=== PATIENT | female | born 1950 | race Caucasian/White ===

== ENCOUNTER 2017-01-06 13:16 | Inpatient (IN) | payer OTHER ==
[2017-01-06] VITALS (8 sets, daily range): BP systolic 140–158; BP diastolic 80–99; PULSE 62–72; RESP 15–22; TEMP 98; Ht 167.6 cm; Wt 70.0 kg
[~2017-01-06] VITALS: Ht 167.6 cm; Wt 70.0 kg
--- NOTE | 2017-01-06 14:23 | ERA ---
ER Documentation Chief Complaint Date/Time DATE: 01/06/17 TIME: 14:23 Chief Complaint CP that radiates to B arm pain and back. HPI The patient is a 66-year-old female, presenting to the ER because of substernal chest pain radiating out to bilateral arms for the last 4 days, 12/27. She denies similar symptoms previously, denies chest pain with exertion or vomiting or diaphoresis. She denies fever, chills, neck pain, abdominal pain, vomiting, dysuria, diarrhea, constipation. He does not smoke or drink Past medical/surgical history: None ROS All systems reviewed and are negative except as per history of present illness. Medications Home Meds No Active Prescriptions or Reported Meds Allergies Allergies: Coded Allergies: No Known Allergy (Unverified , 01/06/17) Physical Exam Vitals Vital Signs Date Time Temp Pulse Resp B/P Pulse Ox O2 Delivery O2 Flow Rate FiO2 01/06/17 17:53 98.0 72 20 151/93 99 01/06/17 16:53 98.0 68 20 132/88 99 01/06/17 15:53 98.0 70 20 138/74 99 01/06/17 13:34 98.0 75 20 129/75 99 Physical Exam Const: No acute distress. Head: Atraumatic. Eyes: Normal Conjunctiva. ENT: Normal External Ears, Nose and Mouth. Neck: Full range of motion. No meningismus. Resp: Clear to auscultation bilaterally. Cardio: Regular rate and rhythm, no murmurs. Abd: Soft, non distended, normal bowel sounds, non tender. Skin: No petechiae or rashes. Back: No midline or flank tenderness. Ext: No cyanosis, or edema. Neur: Awake and alert. No focal deficit Psych: Normal Mood and Affect. Result Diagram: 01/06/17 1430 01/06/17 1430 Results 24 hrs Laboratory Tests Test 01/06/17 14:30 Activated Partial Thromboplast Time 25.0Sec Anion Gap 14 Basophils # 0.010^3/ul Basophils % 0.5% Blood Urea Nitrogen 17mg/dl Calcium Level 8.9mg/dl Carbon Dioxide Level 32mmol/L Chloride Level 101mmol/L Creatinine 0.88mg/dl Eosinophils # 0.110^3/ul Eosinophils % 0.7% Free Thyroxine 1.57ng/dl Glucose Level 93mg/dl Hematocrit 37.9% Hemoglobin 11.9g/dl Hemoglobin A1c 5.9% INR International Normalized Ratio 0.98 Lymphocytes # 2.910^3/ul Lymphocytes % 33.0% Mean Corpuscular Hemoglobin 29.0pg Mean Corpuscular Hemoglobin Concent 31.4g/dl Mean Corpuscular Volume 92.4fl Mean Platelet Volume 10.2fl Monocytes # 0.810^3/ul Monocytes % 8.6% Neutrophils # 5.010^3/ul Neutrophils % 57.0% Nucleated Red Blood Cells # 0.010^3/ul Nucleated Red Blood Cells % 0.0/100WBC Platelet Count 90958^3/UL Potassium Level 3.8mmol/L Prothrombin Time 13.0Sec Prothrombin Time Ratio 1.0 Red Blood Count 4.1010^6/ul Red Cell Distribution Width 13.8% Sodium Level 143mmol/L Troponin I 17.400ng/ml Vitamin D 1,25-Dihydroxy 19.6ng/ml White Blood Count 8.810^3/ul Current Medications Medications (Trade) Dose Ordered Sig/Arianna Route PRN Reason Start Time Stop Time Status Last Admin Dose Admin Aspirin (Aspirin) 325 mg ONCE ONCE PO 01/06/17 15:30 01/06/17 15:31 DC 01/06/17 15:27 Nitroglycerin 1 inch 1 inch ONCE ONCE TD 01/06/17 15:30 01/06/17 15:31 DC 01/06/17 15:27 Nitroglycerin/ Dextrose (Nitroglycerin 50 Mg/D5W (Pmx)) 250 ml @ 0 mls/hr TITRATE IV 01/06/17 15:30 Miscellaneous Information (* Miscellaneous Pharmacy Order) DC previous hepa... ONCE ONCE XX 01/06/17 16:00 01/06/17 16:01 DC Heparin Sodium (Porcine) (Heparin (1000 Units/ml)) 4,000 unit ONCE ONCE IV 01/06/17 16:00 01/06/17 16:01 DC 01/06/17 15:59 Miscellaneous Information (* Miscellaneous Pharmacy Order) DC previous hepa... ONCE ONCE XX 01/06/17 16:00 01/06/17 16:01 DC Heparin Sodium (Porcine) (Heparin (1000 Units/ml)) 4,000 unit ONCE ONCE IV 01/06/17 16:00 01/06/17 16:01 DC Heparin Sodium (Porcine) 4000 unit 4,000 unit PER PROTOCOL PRN IV aPTT<47 01/06/17 16:00 Heparin Sodium (Porcine) (Heparin 68953 Units/250 ml) 250 ml @ 8.4 mls/hr PER PROTOCOL IV 01/06/17 16:00 01/06/17 16:14 Heparin Sodium (Porcine) ONCE IV 01/06/17 16:00 01/06/17 16:00 DC Heparin Sodium (Porcine) (Heparin 88086 Units/250 ml) 250 ml @ 0 mls/hr Q24H IV 01/06/17 16:00 01/06/17 16:00 DC Heparin Sodium (Porcine) PRN PRN IV PENDING LAB VALUE 01/06/17 16:00 01/06/17 16:00 DC Potassium Chloride/Dextrose/ Sod Cl (D5-1/2ns + KCl 20 Meq) 1,000 ml @ 60 mls/hr [id number] IV 01/06/17 17:43 IV Flush (NS 3 ml) 3 ml PER PROTOCOL IV 01/06/17 18:00 01/06/17 18:24 DC IV Flush (NS 3 ml) 3 ml PER PROTOCOL IV 01/06/17 18:00 Lorazepam (Ativan) 0.5 mg Q6H PRN IV ANXIETY 01/06/17 18:00 Ondansetron HCl (Zofran Inj) 4 mg Q6H PRN IV NAUSEA AND/OR VOMITING 01/06/17 18:00 Nitroglycerin (Nitroglycerin (Sl Tab) 0.4 Mg) 1 tab Q5M PRN SL CHEST PAIN 01/06/17 18:00 Acetaminophen (Tylenol Tab) 650 mg Q6H PRN PO PAIN LEVEL 1-3 OR FEVER 01/06/17 18:00 Acetaminophen/ Hydrocodone Bitart ([place] (5/325)) 1 tab Q6H PRN PO PAIN LEVEL 4-6 01/06/17 18:00 Morphine Sulfate (morphine) 2 mg Q4H PRN IV PAIN LEVEL 7-10 01/06/17 18:00 Pantoprazole (Protonix Tab) 40 mg DAILY@06 PO 01/07/17 06:00 Hydralazine HCl (Apresoline) 10 mg Q6H PRN IV SBP>160 01/06/17 18:00 Procedures/MDM [place] [address] Radiology Main Line: [phone] DIAGNOSTIC IMAGING REPORT Patient: LACHO CAREY : 1950 Age: 66 Sex: F MR #: [id number] DOS: 01/06/17 1426 Ordering MD: SOURAV MERRITT MD Location: E/R Room/Bed: PROCEDURE: XR Chest. CLINICAL INDICATION: chest pain TECHNIQUE: Single frontal view of the chest was obtained COMPARISON: None FINDINGS: The heart and mediastinum are within normal limits. There are linear bibasilar atelectatic changes, left greater than right. The lungs are once clear. There is no pleural effusion or pneumothorax. RPTAT: AA IMPRESSION: Linear bibasilar atelectatic changes, left greater than right. .Stanley Guerrero MD, MD Date Time Electronically viewed and signed by .Stanley Guerrero MD, MD on 01/06/2017 14: 54 .S/ CC: SOURAV MERRITT MD EKG: Read by emergency physician at 1:39 PM Rate/Rhythm: Normal Sinus Rhythm at 77 beats/min QRS, ST, T-waves: No ST elevation, no T inversion, LAD, low voltage, inferior and anterior Q waves Impression: Abnormal EKG EKG: Read by emergency physician at 2:50 PM Rate/Rhythm: Normal Sinus Rhythm at 70 beats/min QRS, ST, T-waves: No ST elevation, no T inversion, LAD, low voltage, inferior and anterior Q waves Impression: Abnormal EKG MEDICAL MAKING DECISION: The patient is a 66-year-old female, presenting with acute non-STEMI with persistent chest pain. She was treated with aspirin 325 mg p.o., 1 inch of nitroglycerin ointment, heparin drip cardiac protocol, nitroglycerin drip with good response. The differential diagnoses considered include but are not limited to acute coronary syndrome, acute myocardial infarction, pericarditis, pulmonary embolism, aortic dissection, pneumonia, pleural effusion, pneumothorax, GERD, chest wall pain. Consultation: I discussed the patient with the on-call wire hanger Dr. Corbin at 3:25 PM, who was made aware of the lab, the treatment, the patient condition. He agreed with the plan and recommended ICU admission Critical Care: Time: 35 minutes excluding all billable procedures. Treatments/Evaluations: Close monitoring and treatment of unstable vital signs, cardiorespiratory, and neurologic status, while maintaining tight balance of fluid, respiratory, and cardiac interventions. Departure Diagnosis: Primary Impression: Acute non-ST segment elevation myocardial infarction (STEMI) following previous myocardial infarction Additional Impression: Anemia Condition: Critical Comments I discussed the findings with the patient. I discussed the patient with the on- call hospitalist Dr. Xavier who was made aware of the lab, the treatment, the patient condition and my discussion with the wire hanger. The patient is admitted to ICU at 4:50 PM The patient's blood pressure was elevated (>120/80) but appears stable without evidence of hypertension emergency or urgency. The patient was counseled about the risks of hypertension and urged to pursue outpatient monitoring and therapy within a week after discharge with their primary care physician. SOURAV MERRITT MD Jan 06, 2017 14:23
[2017-01-06 14:45] LABS: ADD SCAN DIFF NO
[2017-01-06 14:49] LABS: BASOPHILS % 0.5 % (0.0-2.0); EOSINOPHILS # 0.1 10^3/ul (0.0-0.5); EOSINOPHILS % 0.7 % (0.0-7.0); HEMATOCRIT 37.9 % (37.0-47.0); HEMOGLOBIN 11.9 g/dl (12.0-16.0); LYMPHOCYTES # 2.9 10^3/ul (0.8-2.9); MEAN CORPUSCULAR HGB CONC 31.4 g/dl (32.0-37.0); MEAN CORPUSCULAR VOLUME 92.4 fl (82.0-101.0); MEAN PLATELET VOLUME 10.2 fl (7.4-10.4); MONOCYTE # 0.8 10^3/ul (0.3-0.9); MONOCYTES % 8.6 % (0.0-11.0); PLATELET COUNT 270 10^3/UL (140-415); RED CELL DISTRIBUTION WIDTH 13.8 % (11.5-14.5); WHITE BLOOD COUNT 8.8 10^3/ul (4.8-10.8)
--- NOTE | 2017-01-06 14:55 | RADRPT ---
PROCEDURE: XR Chest. CLINICAL INDICATION: chest pain TECHNIQUE: Single frontal view of the chest was obtained COMPARISON: None FINDINGS: The heart and mediastinum are within normal limits. There are linear bibasilar atelectatic changes, left greater than right. The lungs are once clear. There is no pleural effusion or pneumothorax. RPTAT: AA IMPRESSION: Linear bibasilar atelectatic changes, left greater than right. .Stanley Guerrero MD, MD Date Time Electronically viewed and signed by .Stanley Guerrero MD, MD on 01/06/2017 14:54 .S/
[2017-01-06 15:00] LABS: INR 0.98
[2017-01-06 15:01] LABS: POTASSIUM 3.8 mmol/L (3.5-5.1)
[2017-01-06 15:03] LABS: CREATININE 0.88 mg/dl (0.44-1.00)
[2017-01-06 15:04] LABS: CALCIUM 8.9 mg/dl (8.4-10.2)
[2017-01-06 15:20] LABS: TROPONIN-I 17.4 ng/ml (0.00-0.12)
[2017-01-06] MEDS ORDERED: NITROGLYCERIN 2% 1 GM OINT PKT TD ONE (15:30)
[2017-01-06] MEDS ORDERED: NITROGLYCERIN 50 MG/D5W (PMX) 250 ML IV SCH (15:30)
[2017-01-06] MEDS ORDERED: ASPIRIN 325 MG TAB PO ONE (15:30)
[2017-01-06] MEDS ORDERED: HEPARIN 1000 UNITS/ML 10 ML INJ IV SCH (16:00)
[2017-01-06] MEDS ORDERED: HEPARIN 25000 UNITS/D5W 250 ML IV SCH (16:00)
[2017-01-06] MEDS ORDERED: HEPARIN 1000 UNITS/ML 10 ML INJ IV PRN ×2 (16:00)
[2017-01-06] MEDS ORDERED: HEPARIN 25000 UNITS/250 ML 250 ML IV SCH (16:00)
[2017-01-06] MEDS ORDERED: HEPARIN 1000 UNITS/ML 10 ML INJ IV ONE ×2 (16:00)
[2017-01-06] MEDS ORDERED: D5W-0.45 NACL + KCL 20 MEQ 1,000 ML IV SCH (17:43)
[2017-01-06] MEDS ORDERED: ONDANSETRON 4 MG INJ IV PRN (18:00)
[2017-01-06] MEDS ORDERED: morphine 2 MG INJ IV PRN ×2 (18:00→21:00)
[2017-01-06] MEDS ORDERED: NACL 0.9% 3 ML SYG IV SCH ×2 (18:00)
[2017-01-06] MEDS ORDERED: HYDROCODONE/APAP (5/325) TAB PO PRN (18:00)
[2017-01-06] MEDS ORDERED: LORAZEPAM 2 MG INJ IV PRN (18:00)
[2017-01-06] MEDS ORDERED: hydrALAzine 20 MG INJ IV PRN (18:00)
[2017-01-06] MEDS ORDERED: ACETAMINOPHEN 325 MG TAB PO PRN ×2 (18:00→21:00)
[2017-01-06] MEDS ORDERED: NITROGLYCERIN (SL) 0.4 MG TAB SL PRN (18:00)
--- NOTE | 2017-01-06 18:03 | RADRPT ---
Echocardiogram Report Patient Name: LACHO CAREY Gender: Female Date: 1950 Study Date: 06-Jan-2017 Clinical Nurse Reviewer: Hermelinda Rosario RDCS Location: [facility] Ref. Physician: SOURAV MERRITT Quality: Adequate Procedures: Transthoracic echocardiogram with complete 2D, M-Mode, and doppler examination. Indications: NSTEMI. 2D/M Mode Doppler Measurement Value Normal Ranges Measurement Value Normal Ranges LVIDd 2D 4.5 3.5 - 5.6 cm AV Peak Merritt 1.0 m/sec LVIDs 2D 2.9 2.1 - 4.1 cm AV Peak PG 4.0 mmHg FS 2D 34.7 % AI Peak PG 37.0 mmHg LVPWd 2D 0.9 0.6 - 1.1 cm AI Peak Merritt 3.0 m/sec IVSd 2D 1.0 0.6 - 1.1 cm AI PHT 514.0 msec IVS/LVPW 2D 1.2 LVOT Peak Merritt 0.7 m/sec AoR Diam 2D 2.2 2.0 - 3.7 cm LVOT Peak PG 2.0 mmHg LA/Ao 2D 1 0 - 1 MV E Peak Merritt 0.4 m/sec LA Dimen 2D 3.2 2.3 - 4.0 cm MV A Peak Merritt 0.6 m/sec MV E/A 0.7 MV Decel Time 211 msec MV E/A 0.7 TR Peak Merritt 1.9 m/sec TR Peak PG 14.0 mmHg RVSP 17.0 mmHg Findings Left Ventricle: Normal left ventricular cavity size. Normal left ventricular wall thickness. Ejection fraction is visually estimated at 30 - 35 %. Tissue Doppler/Mitral Doppler indices are consistent with impaired relaxation (Stage I diastolic dysfunction). Multiple segmental wall motion abnormalities. Right Ventricle: Normal right ventricular size. Normal right ventricular systolic function. Left Atrium: The left atrium is normal in size. Right Atrium: The right atrium is normal in size. Mitral Valve: Normal appearance and function of the mitral valve with trace physiologic regurgitation. Aortic Valve: No hemodynamically significant aortic stenosis by doppler. Aortic cusps appear mildly calcified. Trace to mild aortic valve regurgitation. Tricuspid Valve: Normal appearance of the tricuspid valve. Estimated peak PA systolic pressure 17 mmHg. There is trace tricuspid regurgitation. Pulmonic Valve: Normal pulmonic valve appearance. Pericardium: Normal pericardium with no significant pericardial effusion. Aorta: Normal aortic root. IVC: Normal size and normal respiratory collapse consistent with normal right atrial pressure. Conclusions 1.Normal left ventricular cavity size. Normal left ventricular wall thickness. Ejection fraction is visually estimated at 30 - 35 %. Tissue Doppler/Mitral Doppler indices are consistent with impaired relaxation (Stage I diastolic dysfunction). Multiple segmental wall motion abnormalities. 2.The left atrium is normal in size. 3.Normal appearance and function of the mitral valve with trace physiologic regurgitation. 4.No hemodynamically significant aortic stenosis by doppler. Aortic cusps appear mildly calcified. Trace to mild aortic valve regurgitation. 5.Normal appearance of the tricuspid valve. Estimated peak PA systolic pressure 17 mmHg. There is trace tricuspid regurgitation. Electronically Signed By: Mohan Corbin 06-Jan-2017 18:02:14 -0700 Patient Name: LACHO CAREY Study Date: 06-Jan-2017 [id number]
[2017-01-06] MEDS ORDERED: BIVALIRUDIN 250MG /NS 50 ML 50 ML IVPB ONE (19:21)
[2017-01-06] MEDS ORDERED: IODIXANOL LOCM 100 ML BTL ONE (19:21)
[2017-01-06] MEDS ORDERED: HEPARIN 1000 UNITS/ML 10 ML INJ ONE (19:21)
[2017-01-06] MEDS ORDERED: LIDOCAINE 1% (MDV) 20 ML INJ ONE (19:21)
[2017-01-06] MEDS ORDERED: MIDAZOLAM 1 MG/ML 2 ML INJ ONE (19:45)
[2017-01-06] MEDS ORDERED: FENTAnyl 50 MCG/ML VIAL ONE (19:45)
[2017-01-06] MEDS ORDERED: NITROGLYCERIN (IC) 100 MCG/ML INJ ONE (19:47)
[2017-01-06] MEDS ORDERED: VERAPAMIL 5 MG INJ ONE (19:47)
--- NOTE | 2017-01-06 20:01 | HP ---
DATE OF ADMISSION: 01/06/2017 TIME OF EVALUATION: 1730. REASON FOR ADMISSION: Chest pain. CONSULTANTS: Mohan Corbin M.D., Cardiology. HISTORY OF PRESENT ILLNESS: This is a 66-year-old female who denies any significant past medical history, who came to the emergency room with chief complaint of chest pain as well as bilateral upper extremity pain and numbness. The patient verbalized that she started having this pain since 01/02/2017. The patient however verbalized that the pain has been going on and off. The pain was described as substernal with radiation to bilateral upper extremities. The patient denied any associated nausea or diaphoresis. The patient was reporting anorexia over the past 4 days. When asked about why the patient was late to seek medical attention, the patient verbalized that she does not like to go to a hospital. The patient denied any family history of heart disease. The patient denied any prior history of essential hypertension or diabetes. However, the patient verbalized that approximately 3 years ago, she was told that she has high blood pressure. Nevertheless, she was not taking any medication for this. The patient denied any fevers or chills. She was complaining of some dyspnea. The patient denied any abdominal pain, diarrhea, hematochezia or dysuria. The patient denied any calf pain or tenderness. The patient lives at home with her friends. The patient's family is in [facility]. In the emergency room, the patient was noticed to have initial troponin of 17.400. The patient's chest x-ray was showing linear bibasilar atelectatic changes, left greater than right. The patient's vital signs were stable in the emergency room. The patient was started on a heparin drip in the emergency room. The patient was also given a single dose of aspirin in the emergency room. PAST MEDICAL HISTORY: Denies. PAST SURGICAL HISTORY: Tubal ligation. HOME MEDICATIONS: None. ALLERGIES: NO KNOWN DRUG ALLERGIES. 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 The patient is from [facility]. The patient said her family is in [facility]. Denies any use of tobacco, alcohol or illicit drugs. REVIEW OF SYSTEMS: A 12-point review of systems were reviewed and the review of systems are negative other than what is mentioned in the history of present illness. PHYSICAL EXAMINATION: VITAL SIGNS: Temperature 98.0, pulse rate 68, respiratory rate 20, blood pressure 132/88, oxygen saturation 99% on room air. GENERAL: This is a slightly overweight female patient lying in bed in no apparent distress. HEENT: Head normocephalic and atraumatic. Eyes: Anicteric sclerae. Conjunctivae clear. ENT: Nasal septum is midline. Oral mucosa is dry. NECK: Supple. No JVD noticed. RESPIRATORY: Bilaterally clear to auscultation. No adventitious breath sounds heard. No use of accessory muscles of respiration. CARDIAC: Regular rate and rhythm. No obvious murmurs heard. ABDOMEN: Abdomen soft, nontender and nondistended. Bowel sounds positive in all 4 quadrants. GENITOURINARY: Deferred. EXTREMITIES: No cyanosis, no clubbing, no edema. Peripheral pulses are palpable. NEUROLOGIC: The patient is awake, alert and oriented. Cranial nerves II through XII grossly intact. SKIN: Normal skin turgor. No skin rashes. LABORATORY AND DIAGNOSTIC DATA: WBC 8.8, hemoglobin 11.9, hematocrit 37.9, platelet count of 70. Sodium 143, potassium 3.8, chloride 101, carbon dioxide 32, anion gap 14, BUN 17, creatinine 0.88, glucose 93, calcium 8.9. Troponin 17.400, PT 13.0, INR 0.98. Chest x-ray: Linear bibasilar atelectatic changes, left greater than right. IMPRESSION: This is a 66-year-old female who denies any significant past medical history, who came to the emergency room with chief complaint of chest pain and bilateral upper extremity pain, who was found to have elevated troponins and will be admitted here for further treatment and evaluation. ASSESSMENT AND PLAN: 1. Plc-YA-giiciqxxd myocardial infarction. The patient will be started on a heparin drip. The patient will be kept n.p.o. except for any medications. Cardiology consult will be obtained. A 2-D echocardiogram will be obtained to evaluate the left ventricular ejection fraction to evaluate for any wall motion abnormalities. The patient will be started on aspirin. 2. Chest pain and bilateral upper extremity pain, most probably secondary to # 1. The patient will be provided with adequate pain control. Plan. The patient will be admitted to inpatient intensive care unit. The patient will be kept n.p.o. except for medications. The patient will be maintained on heparin drip. The patient will be started on gastrointestinal prophylaxis. The patient will remain a FULL CODE. Baseline labs including hemoglobin A1c, fasting lipid panel, and a thyroid panel will be obtained. The rest of the patient's management will be based on the clinical course, the results of diagnostic studies, and inputs from consultants. Based on the patient's clinical presentation, she most probably requires at least 2 midnights' stay for further management and evaluation of her clinical presentation. The case and management of this patient was fully discussed with Dr. Ramos. JORGE RAMOS MD, AM/KATY Conf#: [id number] DID#: [id number] MTDD
[2017-01-06] MEDS ORDERED: TICAGRELOR 90 MG TABLET ONE (20:07)
--- NOTE | 2017-01-06 20:20 | CONS ---
DATE OF ADMISSION: 01/06/2017 DATE OF CONSULTATION: 01/06/2017 REFERRING PHYSICIAN: Rich Jones, OIL BAY TECHNICIAN, and Dr. Hemant Merritt. REASON FOR CONSULTATION: Chest pain, abnormal troponin. CHIEF COMPLAINT: Chest pain. HISTORY OF PRESENT ILLNESS: Thank you for this referral. History obtained from the patient, mary ruiz with Dr. Merritt, ER physician. A 66-year-old female with history of dyslipidemia on no medication, who presented ____ above complaint. The patient says since the past 5 days she has had chest pain. It started 5 days ago. It was severe the first 2 days, got better over the weekend; ho wever, yesterday she had recurrence of chest pain and came to the emergency room. Initial troponin has been 17. She was started on heparin. The pain has gone away, has improved now, but the patient is resting on heparin drip. PAST MEDICAL HISTORY: History of dyslipidemia. MEDICATIONS AT HOME: None. SOCIAL HISTORY: Does not smoke or drink. FAMILY HISTORY: Denies any history of coronary artery disease. ALLERGIES: NO REPORTED ALLERGIES. REVIEW OF SYSTEMS: As above mentioned. She says she "does not like to take medication." PHYSICAL EXAMINATION: VITAL SIGNS: Temperature 98, heart rate of 72, blood pressure 151/93, respiration rate of 20, satur ating 99%. HEENT: Normocephalic, atraumatic. Obese female. Pupils are equal. CARDIOVASCULAR: Regular rate and rhythm. Systolic murmur. PULMONARY: With no wheezes, no rhonchi. GASTROINTESTINAL: Soft, obese, nontender. EXTREMITIES: Trivial lower extremity edema. NEUROLOGIC: Awake and alert, oriented x3. PSYCHIATRIC: Calm, pleasant. DIAGNOSTIC DATA: Chest x-ray showed linear basilar atelectatic changes, left greater than right. E KG was personally reviewed, showed normal sinus rhythm, inferior infarct, age undetermined, anterose ptal infarct, age undetermined. There are Q-waves, both sides, noted. Echocardiogram was personall y reviewed, shows severe LV dysfunction with multiple wall motion abnormalities ejection fraction ab out 30% to 35%. LABORATORY DATA: WBC of 8.8, hemoglobin 11.9, platelets of 270. Sodium 143, potassium 3.8, BUN of 17, creatinine 0.88, glucose of 93. Troponin of 17.4. Hemoglobin A1c of 5.9. ASSESSMENT AND PLAN: 1. Acute non-ST elevation myocardial infarction. 2. Severe ischemic cardiomyopathy, ejection fraction of 30% to 35%. 3. Hypertension. 4. Dyslipidemia. 5. Abnormal EKG secondary to above. RECOMMENDATIONS: The patient has been given aspirin. The patient was started on heparin drip. Giv en her extensive LV dysfunction and abnormal troponin, she was recommended to undergo left heart cat heterization, left coronary angiography, possible percutaneous coronary intervention. Risks and alt ernatives of the procedure discussed with the patient in detail. Risks include infection, vascular complication, bleeding complication, VA, stroke, arrhythmia, , renal failure, etc., discussed w ith the patient. The patient has consented to procedure. Also, importance of compliance with medic ation has been explained to the patient. The patient stated she would be able to be compliant and w ill take the medication. I have called the pie bakery laborer in and we will proceed with a cardiac catheteri zation once the patient is brought to pie bakery laborer and arrives here. For now, we will continue with the heparin drip. Dictated By: YEVGENIY MORE MD AV/NTS Conf#: [id number] DID#: [id number] CC: HEMANT MERRITT MD; RICH JONES O[employer]AY TECHNICIAN;*[facility]*
[2017-01-06] MEDS ORDERED: SOD CHLORIDE 0.9% 1,000 ML IV SCH (20:36)
--- NOTE | 2017-01-06 20:53 | SP ---
DATE OF PROCEDURE: 01/06/2017 PROCEDURE PERFORMED: 1. Urgent left heart catheterization, selective right and left coronary angiography. 2. Successful PTCA and stenting of the right coronary artery from 99% stenosis and no significant r esidual stenosis using a 3.5 x 24 mm Promus drug-eluting stent. 3. Thrombectomy, right coronary artery. 4. Right femoral angiogram. 5. Closure of right femoral artery using a Perclose device. SURGEON: Yevgeniy Corbin MD INDICATIONS: A 66-year-old female who presented with non-ST elevation myocardial infarction. FINDINGS: 1. Left main coronary artery is normal. 2. Left anterior descending is a small vessel, has about 30% to 40% proximal and mid stenosis. 3. Left circumflex artery appeared to be normal. 4. Right coronary is a large, dominant vessel. Proximally to mid level has about 99% long lesion. Distally about 50% lesion. After successful PTCA and stenting of the proximal lesion, no significa nt residual stenosis left. Mid distal level was left alone, since this does not appear to be hemody namically significant. 5. LV systolic pressure was 143 with LVEDP of 11. Aortic pressure with pullback is 139/81. Ejecti on fraction was 45% with anterior wall hypokinesis. DESCRIPTION OF PROCEDURE IN DETAIL: Written informed consent after the risks and benefits were disc ussed with the patient in detail. The patient was brought to the laborer golf course and placed in supine posi tion. Right and left groins were prepped in sterile fashion. Right coronary was anesthetized with 1% lidocaine. Using Seldinger technique, a 6-Pakistani sheath in the right femoral artery. A JL4 cath eter engaged the left main coronary artery. Angiogram was obtained. ____ catheter was advanced int o the left main, hemodynamics recorded. Pullback aortic pressure was measured. ____ right coronary artery and angiogram was obtained. At this time, we decided to perform the PCI of the right benson ry artery. JR4 catheter was advanced and engaged in the right coronary artery. BMW wire used acros s the lesion. Pronto was used and thrombectomy was done. Angiogram was obtained. Then, the 2.5 x ____ mm balloon was used to cross the lesion, inflated. Angiogram was obtained. Then, I used a 3.5 x 24 mm Resolute drug-eluting stent, which was placed across the lesion in the proximal to mid RCA and deployed at 12 atmospheres. Angiogram was obtained, which showed ANKIT 3 flow, no evidence of di ssection, no significant residual stenosis outside of the stent. After the stent, there was area of less than 50% lesion was noted. It appeared to be not hemodynamically significant and treated medi leobardo. Catheter and Glidewire were removed. Pigtail was advanced in the left main, hemodynamics re corded. LV gram performed. Pullback aortic pressure was measured. Right femoral angiogram had alr ariadna been obtained. Perclose was successfully deployed. IMMEDIATE COMPLICATIONS: None. TOTAL CONTRAST USED: 200 mL of Visipaque. CONCLUSION: Successful percutaneous transluminal coronary angioplasty and stent, thrombectomy of th e right coronary artery from 100% occlusion to no significant residual stenosis. RECOMMENDATIONS: Aggressive medical therapy. ICU care overnight. Aspirin indefinitely. Brilinta for a minimum of the next 1 year. Dictated By: YEVGENIY SALAS/KATY Conf#: [id number] DID#: [id number]
[2017-01-06] MEDS ORDERED: BIVALIRUDIN 250 MG in SOD CHLORIDE 0.9% 500 ML IV SCH (21:00)
[2017-01-06] MEDS ORDERED: OXYCODONE/ACETAMINOPHEN (5/325) TAB PO PRN (21:00)
[2017-01-06] MEDS: ATORVASTATIN 80 MG TAB PO SCH (22:09)
[2017-01-06] MEDS: TICAGRELOR 90 MG TABLET PO SCH (22:11)
[2017-01-07] VITALS (21 sets, daily range): BP systolic 88–140; BP diastolic 45–83; PULSE 56–78; RESP 13–24
[2017-01-07 05:51] LABS: ADD SCAN DIFF NO
[2017-01-07] MEDS: PANTOPRAZOLE (EC) 40 MG TAB PO SCH (06:04)
[2017-01-07 06:18] LABS: BASOPHILS % 0.3 % (0.0-2.0); EOSINOPHILS % 0.5 % (0.0-7.0); HEMATOCRIT 34.5 % (37.0-47.0); HEMOGLOBIN 11.2 g/dl (12.0-16.0); LYMPHOCYTES # 1.4 10^3/ul (0.8-2.9); LYMPHOCYTES % 15.9 % (15.0-51.0); MEAN CORPUSCULAR HEMOGLOBIN 29.2 pg (29.0-33.0); MEAN CORPUSCULAR HGB CONC 32.5 g/dl (32.0-37.0); MEAN CORPUSCULAR VOLUME 90.1 fl (82.0-101.0); MEAN PLATELET VOLUME 10.1 fl (7.4-10.4); MONOCYTE # 0.8 10^3/ul (0.3-0.9); MONOCYTES % 9.1 % (0.0-11.0); NEUTROPHIL # 6.4 10^3/ul (1.6-7.5); PLATELET COUNT 263 10^3/UL (140-415); RED BLOOD COUNT 3.83 10^6/ul (4.20-5.40); RED CELL DISTRIBUTION WIDTH 13.5 % (11.5-14.5); WHITE BLOOD COUNT 8.6 10^3/ul (4.8-10.8)
[2017-01-07 06:21] LABS: POTASSIUM 4.1 mmol/L (3.5-5.1)
[2017-01-07 06:24] LABS: CALCIUM 8.7 mg/dl (8.4-10.2); CREATININE 0.76 mg/dl (0.44-1.00)
[2017-01-07 06:25] LABS: CHOL/HDL RATIO 5.3 RATIO
[2017-01-07 06:31] LABS: CK-MB 3.7 ng/ml (0.0-2.4)
[2017-01-07] MEDS: ASPIRIN (EC) 81 MG TAB PO SCH (08:47)
[2017-01-07] MEDS: TICAGRELOR 90 MG TABLET PO SCH ×2 (08:50→21:03)
--- NOTE | 2017-01-07 13:05 | PN ---
DATE: 01/07/2017 TIME OF EVALUATION: 0900 AM. SUBJECTIVE DATA: Denies any chest pain. Denies any other complaints. OBJECTIVE DATA: VITAL SIGNS: Temperature 98.6, pulse rate 56, respiratory rate 16, blood pressure 102/68, oxygen saturation 100% on room air. GENERAL: This is an female lying in bed in no apparent distress. HEENT: Head normocephalic and atraumatic. Eyes: Anicteric sclerae. Conjunctivae clear. ENT: Nasal septum is midline. Oral mucosa is moist. NECK: Supple. No JVD noticed. RESPIRATORY: Bilaterally clear to auscultation. No adventitious breath sounds heard. No use of accessory muscles of respiration. CARDIAC: Regular rate and rhythm. A grade II/ systolic ejection murmur. ABDOMEN: Soft, nontender and nondistended. Bowel sounds positive in all 4 quadrants. GENITOURINARY: Deferred. EXTREMITIES: No cyanosis, no clubbing, no edema. Peripheral pulses palpable. NEUROLOGIC: The patient is awake, alert and oriented. Cranial nerves are grossly intact. LABORATORY AND DIAGNOSTIC DATA: WBC 8.6, hemoglobin 11.2, hematocrit 34.5, platelet count 263. Sodium 140, potassium 4.1, chloride 103, carbon dioxide 20 , anion gap 14, BUN 14, creatinine 0.76, glucose 112, calcium 8.7. Troponin I 14.0. Triglycerides 96, total cholesterol 161, LDL 112, HDL 30. ASSESSMENT AND PLAN: 1. Non-ST elevation myocardial infarction. Status post left heart catheterization with placement of a Promus drug-eluting stent to right coronary artery. Continue dual antiplatelet therapy. 2. Ischemic cardiomyopathy with ejection fraction of 30% to 35%. Continue beta blockers. May need BERKLEY inhibitors if the blood pressure allows. 3. Dyslipidemia. Continue statins. 4. Essential hypertension. Continue antihypertensives. 5. Vitamin D deficiency. Continue vitamin D supplements. 6. Fluid, electrolytes and nutrition. Low cholesterol diet. 7. DVT prophylaxis with bilateral sequential compression devices. 8. Gastrointestinal prophylaxis. Proton pump inhibitors PLAN: Continue dual antiplatelet therapy. Optimize cardiac medications as per cardiology. May move the patient out of the intensive care unit if cleared by cardiology. Case discussed with Dr. Walker. Critical care time: 35 minutes. JORGE WALKER MD, AM/KATY Conf#: [id number] DID#: [id number] MTDD
[2017-01-07] MEDS: CHOLECALCIFEROL 1,000 UNIT TAB PO SCH (18:05)
[2017-01-07] MEDS: ATORVASTATIN 80 MG TAB PO SCH (21:02)
[2017-01-08] VITALS (9 sets, daily range): BP systolic 92–121; BP diastolic 50–67; PULSE 57–73; RESP 18
[2017-01-08] MEDS: PANTOPRAZOLE (EC) 40 MG TAB PO SCH (05:37)
--- NOTE | 2017-01-08 07:32 | PN ---
DATE: 01/07/2017 CARDIOLOGY FOLLOWUP SUBJECTIVE: Discussed with the patient's son, discussed with Rich Jones, discussed with the staf f. The patient remains in sinus rhythm. No chest pain or pressure. Groin with no bleeding. MEDICATIONS: Reviewed. PHYSICAL EXAMINATION: VITAL SIGNS: Temperature 98.6, heart rate of 65, blood pressure of 98/76, respiratory rate of 17. HEENT: Normocephalic, atraumatic. Pupils are equal. CARDIOVASCULAR: Regular rate and rhythm, systolic murmur. PULMONARY: With no wheezes heard. GASTROINTESTINAL: Soft, nontender. EXTREMITIES: With no significant edema in the lower extremities. NEUROLOGIC: Awake and alert. PSYCHIATRIC: Calm, pleasant. VASCULAR: Right with no bleeding, no hematoma. Small ecchymosis noted. PSYCHIATRIC: Appears to be calm and pleasant. LABORATORY: WBC of 8.6, hemoglobin 11.2, platelets 263. Sodium 140, potassium 4.1. Troponin is do wn to 14, LDL 112. ASSESSMENT AND PLAN: 1. [id number] myocardial infarction, status post percutaneous coronary intervention of right coronary artery. 2. Dyslipidemia. 3. Hypertension. RECOMMENDATIONS: The patient will be continued on aspirin and Brilinta. I have given the prescript ion to the son of those 2 medications to fill the prescription. I also provided him with a coupon f or a free . However, they still have not obtained the medication. Coreg will be decreased to 3.125 to avoid hypotension. Lipitor will be continued. We will transfer the patient to telemetry a nd discharge planning possibly for tomorrow. Dictated By: YEVGENIY MORE MD AV/KATY Conf#: [id number] DID#: [id number] CC: RICH JONES OFF PREMISE SERVICE REPRESENTATIVE;*EndCC*
[2017-01-08 08:04] LABS: ADD SCAN DIFF NO
[2017-01-08 08:12] LABS: BASOPHILS % 0.4 % (0.0-2.0); EOSINOPHILS # 0.1 10^3/ul (0.0-0.5); EOSINOPHILS % 0.7 % (0.0-7.0); HEMATOCRIT 34.4 % (37.0-47.0); HEMOGLOBIN 11.3 g/dl (12.0-16.0); LYMPHOCYTES # 1.8 10^3/ul (0.8-2.9); LYMPHOCYTES % 21.3 % (15.0-51.0); MEAN CORPUSCULAR HEMOGLOBIN 29.5 pg (29.0-33.0); MEAN CORPUSCULAR HGB CONC 32.8 g/dl (32.0-37.0); MEAN CORPUSCULAR VOLUME 89.8 fl (82.0-101.0); MEAN PLATELET VOLUME 10.2 fl (7.4-10.4); MONOCYTE # 0.8 10^3/ul (0.3-0.9); NEUTROPHIL # 5.7 10^3/ul (1.6-7.5); NEUTROPHILS % 68.2 % (39.0-77.0); PLATELET COUNT 287 10^3/UL (140-415); RED BLOOD COUNT 3.83 10^6/ul (4.20-5.40); RED CELL DISTRIBUTION WIDTH 13.3 % (11.5-14.5); WHITE BLOOD COUNT 8.4 10^3/ul (4.8-10.8)
--- NOTE | 2017-01-08 08:20 | RADRPT ---
Vent Rate: 67 bpm RR Interval: 0 msec NH Interval: 158 msec QRS Duration: 84 msec QT Interval: 372 msec QTC Interval: 393 msec P-R-T [place]: 44 - -43 - 104 degrees Normal sinus rhythm Left axis deviation Inferior infarct , possibly acute Anterior infarct , age undetermined ACUTE OR Consider right ventricular involvement in acute inferior infarct Abnormal ECG Electronically Signed By: Usama Crum [id number]
[2017-01-08 08:29] LABS: POTASSIUM 4.1 mmol/L (3.5-5.1)
[2017-01-08 08:31] LABS: MAGNESIUM 2.1 mg/dl (1.7-2.5); PHOSPHORUS 4.2 mg/dl (2.5-4.9)
[2017-01-08 08:32] LABS: CREATININE 0.89 mg/dl (0.44-1.00)
[2017-01-08 08:33] LABS: CALCIUM 8.7 mg/dl (8.4-10.2)
[2017-01-08] MEDS: ASPIRIN (EC) 81 MG TAB PO SCH (09:14)
[2017-01-08] MEDS: CHOLECALCIFEROL 1,000 UNIT TAB PO SCH (09:14)
--- NOTE | 2017-01-08 09:32 | PN ---
DATE: 01/08/2017 CARDIOLOGY FOLLOWUP SUBJECTIVE: Patient with no chest pain or pressure. No palpitation. No groin pain. MEDICATIONS: Reviewed. PHYSICAL EXAMINATION: VITAL SIGNS: Temperature 98.2, heart rate of 67, blood pressure 90/50, respiration rate of 18, satu rating 95%. HEENT: Normocephalic, atraumatic. Pupils equal and round. CARDIOVASCULAR: Regular rate and rhythm, systolic murmur. PULMONARY: With no wheezes or rhonchi. GASTROINTESTINAL: Soft, nontender. EXTREMITIES: No significant edema. NEUROLOGIC: Awake and alert x3. PSYCHIATRIC: Calm, pleasant. LABORATORY: WBC of 8.4, hemoglobin 11.3, platelets 287. Sodium 142, potassium 4.1, BUN of 13, crea tinine 0.89, glucose of 94. Mag is 2.1. ASSESSMENT AND PLAN: 1. [id number] myocardial infarction. 2. Status post percutaneous coronary intervention of the right coronary artery. 3. Dyslipidemia. 4. Hypertension. RECOMMENDATIONS: Current cardiac care including Carvedilol, aspirin, Brilinta and statin will be c ontinued. Discharge planning for today. Patient tells me that her son was able to fruit picker the pres cription for aspirin and Brilinta, although, they do not have it at the bedside for me to confirm th at. The patient advised that she needs to follow with me within the next 1 or 2 weeks. Dictated By: YEVGENIY MORE MD AV/KATY Conf#: [id number] DID#: [id number] CC: JORGE BOWERS BEADWORKER;*End*
[2017-01-08] MEDS: TICAGRELOR 90 MG TABLET PO SCH (09:37)
--- NOTE | 2017-01-08 10:45 | PDOCDIS ---
Discharge Instructions DIAGNOSIS Discharge Diagnosis: CAD CONDITION Patient Condition: Stable HOME CARE INSTRUCTIONS: Diet Instructions: Low Fat /CholesterolSpecial Diet: CARDIAC FOLLOW UP/APPOINTMENTS Appointments Mohan Corbin MD Specialty: Cardiology Office Address: [id number] [address] Office OTHER ORDERS: Other Orders: 1. Low-cholesterol diet. 2. Take medications as per prescription. Take aspirin for life long. Continue taking Brilinta for at least one year. 3. Resume activities as tolerated. 4. Follow-up with your switchboard wirer (Dr. Corbin) in 1-2 weeks. Please call for appointment. 5. Please call 911 or go to the nearest emergency room if you have any chest pain or significant shortness of breath. JORGE BOWERS NP Jan 08, 2017 10:45
[2017-01-08] MEDS ORDERED: ATOR80TA75 PO (10:52)
[2017-01-08] MEDS ORDERED: TICA90TA PO (10:52)
[2017-01-08] MEDS ORDERED: ASPI-664 PO (10:52)
[2017-01-08] MEDS ORDERED: CARV3.1260 PO (10:52)
[2017-01-08] MEDS ORDERED: CHOL100062 PO (10:52)
--- NOTE | 2017-01-08 11:43 | DS ---
DATE OF ADMISSION: 01/06/2017 DATE OF DISCHARGE: 01/08/2017 FINAL DIAGNOSES: 1. Non-ST elevation myocardial infarction. Status post left heart catheterization with placement of a Promus drug-eluting stent to the right coronary artery. 2. Ischemic cardiomyopathy with ejection fraction of 30% to 35%. 3. Dyslipidemia. 4. Essential hypertension. 5. Vitamin D deficiency. CONSULTANTS: Mohan Corbin MD, cardiology. HOSPITAL COURSE: This is a 66-year-old female who denies any significant past medical history and came to the emergency room with chief complaint of chest pain as well as bilateral upper extremity pain and numbness. The patient verbalized that she has been having pain since 01/02/2017. However, she waited until 01/06/2017 to seek medical attention. The patient denied any associated nausea or diaphoresis. The patient reported anorexia over a 4 day period. In the emergency room, the patient was noticed to have initial troponin level of 17.400. The patient's chest x-ray was showing linear bibasilar atelectatic changes. Provided the patient's history of present illness and the diagnostic findings, a clinical decision was made to admit the patient to inpatient setting to have her further evaluated. The patient was started on a heparin drip in the emergency room and the patient was transferred to the intensive care unit. Cardiology consult was obtained. The patient was emergently taken to the laboratory associate. The patient underwent a left heart catheterization with successful PTCA and stenting of the right coronary artery from 99% stenosis to no significant residual stenosis using a Promus drug -eluting stent. The patient also underwent a thrombectomy of the right coronary artery. Postprocedure, the patient was transferred back to the intensive care unit. The patient was started on dual-antiplatelet therapy. The patient's fasting lipid panel showed suboptimal LDL and suboptimal HDL. The patient was started on high-dose statins. The patient's 2D echocardiogram showed ejection fraction of 30% to 35% and stage I diastolic dysfunction. The patient was concluded to have ischemic cardiomyopathy. Hence, the patient was started on beta blockers. The patient's blood pressure was slightly borderline low. Hence, it was unable to start the patient on any BERKLEY inhibitors. The patient's hemoglobin A1c was 5.9. The patient's vitamin D level was found to be low. The patient was started on vitamin D supplements. The patient had a stable postprocedure course. The patient was cleared by cardiology to be discharged home. The patient denied any chest pain or any other complaints at the time of discharge. DISCHARGE DISPOSITION/PLAN: The patient will be discharged home today. The patient was instructed to take a low-cholesterol diet. She was instructed to take medications as per prescription and to take aspirin lifelong. The patient was instructed to continue taking Brilinta for at least 1 year. The patient was instructed to resume activities as tolerated. She was instructed to follow up with her straight knife cutter machine in 1 to 2 weeks and to please call for an appointment. The patient was instructed to call 911 or go to the nearest emergency room if she has any chest pain or significant shortness of breath. The patient verbalized understanding of her discharge instructions. CONDITION AT DISCHARGE: Stable. DISCHARGE MEDICATIONS: 1. Aspirin 81 mg p.o. daily. 2. Brilinta 90 mg p.o. b.i.d. 3. Atorvastatin 80 mg p.o. at bedtime. 4. Coreg 3.125 mg p.o. b.i.d. 5. Vitamin D3 1000 units p.o. daily for 14 days. PERTINENT LABORATORY, DIAGNOSTIC DATA AND PROCEDURES: 1. Left heart catheterization. Successful PTCA and stenting of the right coronary artery from 99% stenosis to no significant residual stenosis using a Promus drug-eluting stent. Thrombectomy of right coronary artery. 2. 2-D echocardiogram. Ejection fraction of 30% to 35%. Multiple segmental wall motion abnormalities with stage I diastolic dysfunction. Estimated peak PA systolic pressure of 17 mmHg. Trace tricuspid regurgitation. 4. Latest CBC: WBC 8.4, hemoglobin 11.3, hematocrit 34.4, platelet count 287. 5. Latest BMP: Sodium 140, potassium 4.1, chloride 103, carbon dioxide 27, anion gap 16, BUN 13, creatinine 0.89, glucose 94, calcium 8.4, phosphorus 4.2, magnesium 2.1. 6. Fasting lipid panel: Triglycerides 96, total cholesterol 161, LDL 112, HDL 23. 7. Vitamin D level 19.6. 8. Hemoglobin A1c 5.9. At this time, I would like to thank Dr. Corbin for seeing the patient, doing the necessary procedures and providing clinical recommendations. The case and management of this patient was fully discussed with Dr. Walker. Approximately 35 minutes was spent on coordinating the discharge on this patient. JORGE WALKER MD, AM/KATY Conf#: [id number] DID#: [id number] MTDD
== END 2017-01-08 17:20 | disposition home or self-care (01) | DRG 247 ==
LOC: E/R 13:16 → ICU 17:43 → E/R 19:29 → TEL 01-07 17:10
PROVIDERS: ADMIT Family Medicine; ATTEND Family Medicine
PROC: 02C03ZZ Extirpation of Matter from Coronary Artery, One Artery, Percutaneous Approach (ICD-10-PCS; principal; 2017-01-06)
PROC: 027034Z Dilation of Coronary Artery, One Artery with Drug-eluting Intraluminal Device, Percutaneous Approach (ICD-10-PCS; 2017-01-06)
PROC: 4A023N7 Measurement of Cardiac Sampling and Pressure, Left Heart, Percutaneous Approach (ICD-10-PCS; 2017-01-06)
PROC: B211YZZ Fluoroscopy of Multiple Coronary Arteries using Other Contrast (ICD-10-PCS; 2017-01-06)
PROC: B215YZZ Fluoroscopy of Left Heart using Other Contrast (ICD-10-PCS; 2017-01-06)
DX: I21.4 Non-ST elevation (NSTEMI) myocardial infarction (principal); E55.9 Vitamin D deficiency, unspecified; I10 Essential (primary) hypertension; D64.9 Anemia, unspecified; I25.5 Ischemic cardiomyopathy; E78.5 Hyperlipidemia, unspecified; I25.10 Atherosclerotic heart disease of native coronary artery without angina pectoris
CPT/HCPCS: 36415; 71010; 80048; 80061; 82550; 82553; 82652; 83036; 83735; 84100; 84439; 84443; 84484; 85025; 85610; 85730; 87081; 93005; 93306; 93458; 96374; 96375; J0583; C1725; C1757; C1769; C1874; C1887; C1894; C9600; J1644; J2250; J3010; J7030; J7040; Q9967